=== PATIENT | female | born 1965 | race Caucasian/White ===

== ENCOUNTER → 2020-11-15 | Outpatient (CLI) | payer BC ==
[~2020-11-15] MED LIST: LIDOCAINE 1% Multi-Dose 20 ML VIAL. INJ ONE
--- NOTE | 2020-11-15 11:36 | RAD ---
Examination: 1. Ultrasound-guided right breast core needle biopsy. 2. Right post procedure mammogram. INDICATION: 55-year-old woman with a persistent 4 mm mass in the periareolar right breast recommended for ultrasound-guided biopsy. COMPARISON: Screening mammogram 04/08/2020, right breast ultrasound and diagnostic mammogram of 04/24/20 TECHNIQUE AND FINDINGS: Informed consent was obtained and an appropriate procedural pause observed. Using standard sterile te chnique, ultrasound guidance and local anesthesia, multiple 14-gauge core biopsy samples of the peria reolar right breast mass were obtained following initial unsuccessful attempt at aspiration. Samples were placed in formalin and an open padlock-shaped biopsy marker was deployed in the mass. Hemostasis was assured with direct breast compression for several minutes. Digital right post procedure mammogram showed satisfactory deployment of the biopsy marker in the mas s with no postbiopsy hematoma. IMPRESSION: Successful right breast ultrasound-guided core needle biopsy and clip placement. Pathology results ar e pending. An addendum will be issued once pathology results become available. Electronically signed by: Lesia Watters MD (11/15/2020 11:34 AM) [id number]
--- NOTE | 2020-11-19 14:07 | PATHOLOGY ---
[facility] Accession Number: [id number] . 01 Material submitted: . breast - RIGHT BREAST TISSUE 8:00. Modifiers: right, 8:00 . 01 Clinical history: . RIGHT BREAST BIOPSY 800 1 CM FN . 02 Diagnosis: Breast tissue, right breast mass 8:00 needle biopsies: - Stromal fibrosis. See comment. (JPM:leola; 11/18/2020) [facility] 11/18/2020 1109 Local . 02 Comment: Sections of the right breast mass at 8:00 needle biopsy reveal breast tissue showing an area of dense stromal fibrosis. Within the area of fibrosis, there are small blood vessels and scattered admixed cells having rounded to ovoid and spindle-shaped bland-appearing nuclei. These cells are focally present in small clusters or have a linear arrangement. Immunoperoxidase stains for AE1/AE3 are obtained and yield the following results: . AE1/AE3 (A1): Negative for epithelial cells within the area of fibrosis AE1/AE3 (A2): Negative for epithelial cells within the area of fibrosis . The morphologic and immunophenotypic findings are supportive of the interpretation of a cellular area of stromal fibrosis. There is no evidence of malignancy. . Special stains performed: Immunoperoxidase stains for AE1/AE3 on A1 and A2 . (JPM:leola/mml; 11/18/2020) . 02 Electronically signed: . Gregory Boudreaux MD, Pathologist NPI- [id number] . 01 Gross description: . Received in formalin labeled "[place], right breast 8:00 1 cm FN" are multiple cylindrical fragments of yellow-rodriguez lobulated tissue measuring in aggregate 1.5 x 0.6 x 0.1 cm. The specimen is submitted entirely in cassettes A1-A2. The specimen is removed from the patient at 0945 and placed in formalin at 0946 on November 15, 2020. The specimen is removed from formalin at 1850 on November 17, 2020. [place] [place] [facility] 11/18/2020 1102 Local . 02 Pathologist provided ICD-10: N60.31 . 02 CPT . 292834, [id number] Specimen Comment: Report sent to / Performed at: 01 [facility] [address] [place], [place] [id number] MD Joel Anton MD Phone: [phone] Performed at: 02 [facility] [address] [place], [place] [id number] MD Gregory Boudreaux MD Phone: [phone]
== END | disposition home or self-care (01) ==
LOC: US 09:33
PROVIDERS: ATTEND Nurse Practitioner Women's Health
DX: N63.13 Unspecified lump in the right breast, lower outer quadrant (principal); R92.8 Other abnormal and inconclusive findings on diagnostic imaging of breast
CPT/HCPCS: 19083; 77065; C1713; J3490